=== PATIENT | male | born 1955 | race African-American/Black ===

== ENCOUNTER 2019-10-25 15:20 | Emergency (ER) | payer BC ==
[~2019-10-25 15:20] MED LIST: Iopamidol-370 76% 500 ML 1 ML ONE
[2019-10-25 16:20] LABS: #Lymphocytes 1.1 thou/uL (1.20-3.40); #Monocytes 0.9 thou/uL (0.11-0.59); #Neutrophils 10.5 thou/uL (1.40-6.50); %Basophils 0.2 % (0.0-1.0); %Eosinophils 0.2 % (0.0-10.0); %Monocytes 6.8 % (0.0-10.0); %Neutrophils 83.8 % (42.0-75.0); Hemoglobin 11.4 g/dL (14.0-18.0); Mean Corpuscular HGB CONC 31.6 g/dL (32.0-36.0); Mean Corpuscular Hemoglobin 23.3 pg (27.0-31.0); Mean Corpuscular Volume 73.9 fL (78.0-98.0); Mean Platelet Volume 8.4 fL (7.4-10.4); Platelet Count 251 thou/uL (130-400); RBC Distribution Width 12.6 % (11.5-14.5); Red Blood Cell (RBC) Count 4.89 mill/uL (4.70-6.10); White Blood Cell (WBC) Count 12.5 thou/uL (4.8-10.8)
[2019-10-25 16:38] LABS: ALT (SGPT) 12 U/L (8-55); AST (SGOT) 12 U/L (5-34); Albumin 3.9 g/dL (3.4-4.8); Alkaline Phosphatase 69 U/L (40-110); Anion Gap 14 mmol/L (10-20); BUN (Urea Nitrogen) 18 mg/dL (8.4-25.7); Bilirubin, Total 0.8 mg/dL (0.2-1.2); Calc. Creatinine Clearance 0 mL/min (70-130); Calcium 8.7 mg/dL (7.8-10.44); Carbon Dioxide 24 mmol/L (23-31); Chloride 102 mmol/L (98-107); Estimated GFR-MDRD 81; Globulin 3.2 g/dL (2.4-3.5); Glucose 242 mg/dL (80-115); Potassium 3.9 mmol/L (3.5-5.1); Protein, Total 7.1 g/dL (5.8-8.1); Sodium 136 mmol/L (136-145)
--- NOTE | 2019-10-25 16:45 | CT ---
CT OF NECK PERFORMED WITH INTRAVENOUS CONTRAST ENHANCEMENT: 10/25/19 HISTORY: Throat started hurting Sunday, not improving. Unable to take medications due to pain with swallowi ng. 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 There was an infarct demonstrated on a previous 2014 MRI. There is a low attenuation density associated with an enlarged right tonsillar pillar. This would sug gest early abscess or prominent crypt formation in this region. There appears to be swelling to the uvula associated with this. There are small jugular chain lymph nodes noted which appear significant ly enlarged. Parapharyngeal spaces are clear. Small submandibular nodes are noted. Parotid and subman dibular glands appear unremarkable. Thyroid gland is mildly prominent. No definitive nodules. Lung apices are clear. IMPRESSION: Right sided tonsillitis type changes. POS: OFF
== END 2019-10-25 17:41 | disposition home or self-care (01) ==
LOC: ERS 15:20
DX: J03.90 Acute tonsillitis, unspecified (principal); E11.9 Type 2 diabetes mellitus without complications; I10 Essential (primary) hypertension; Z79.899 Other long term (current) drug therapy; Z79.82 Long term (current) use of aspirin; Z79.84 Long term (current) use of oral hypoglycemic drugs
CPT/HCPCS: 36415; 70491; 80053; 85025; Q9967

== ENCOUNTER 2022-07-13 11:22 | Inpatient (IN) | payer BC ==
[2022-07-13] MEDS ORDERED: Cefepime 2 GM VIAL ONE (11:52)
[2022-07-13] MEDS ORDERED: Magnesium 2 GM/50 ML BAG (IN WATER) ONE (11:52)
[2022-07-13] MEDS ORDERED: Ipratropium/Albuterol 3 ML NEB ONE (11:55)
[2022-07-13 12:05] LABS: #Basophils 0.1 thou/uL (0.0-0.2); #Eosinphils 0.2 thou/uL (0.0-0.7); #Monocytes 0.8 thou/uL (0.11-0.59); #Neutrophils 5.3 thou/uL (1.40-6.50); %Basophils 0.6 % (0.0-1.0); %Eosinophils 1.9 % (0.0-10.0); %Lymphocytes 21.4 % (21.0-51.0); %Monocytes 9.7 % (0.0-10.0); %Neutrophils 66.3 % (42.0-75.0); Hemoglobin 12.7 g/dL (14.0-18.0); Mean Corpuscular HGB CONC 28.8 g/dL (32.0-36.0); Mean Corpuscular Hemoglobin 21.3 pg (27.0-31.0); Mean Corpuscular Volume 74.1 fl (78.0-98.0); Mean Platelet Volume 11.3 fL (7.4-10.4); Platelet Count 208 10x3/uL (130-400); RBC Distribution Width 15.1 % (11.5-14.5); Red Blood Cell (RBC) Count 5.95 mill/uL (4.70-6.10)
[2022-07-13] MEDS ORDERED: methylPREDNISolone Sod Succ/PF 125 MG/2 ML VIAL ONE (12:06)
[2022-07-13] MEDS ORDERED: hydrALAZINE 20 MG/ML VIAL ONE (12:14)
[2022-07-13 12:26] LABS: Actual Bicarbonate (HCO3a) 23.6 mEq/L (22-28); Analyzer IN Cardio ER; Base Excess (BEa) -3.2 mEq/L (-2.0 to +3.0); CO2 Tension 49.3 mmHg (35.0-45.0); Calcium, Ionized (arterial) 1.13 mmol/L (1.12-1.30); Carboxyhemoglobin (COHb) 0.4 gm% (0.0-3.0); Hematocrit-ABG 38 % (42.0-52.0); Potassium - ABG Lab 3.33 mmol/L (3.70-5.30); pH, Arterial 7.298 (7.35-7.45)
[2022-07-13 12:29] LABS: ALT (SGPT) 23 U/L (8-55); AST (SGOT) 34 U/L (5-34); Albumin 4.1 g/dL (3.4-4.8); Alkaline Phosphatase 70 U/L (40-110); Anion Gap 18 mmol/L (10-20); BUN (Urea Nitrogen) 16 mg/dL (8.4-25.7); Bilirubin, Total 0.9 mg/dL (0.2-1.2); Calc. Creatinine Clearance 0 mL/min (70-130); Calcium 8.8 mg/dL (7.8-10.44); Carbon Dioxide 20 mmol/L (23-31); Chloride 101 mmol/L (98-107); Chloride 99 mmol/L (98-107); Estimated GFR 56; Globulin 3.4 g/dL (2.4-3.5); Glucose 235 mg/dL (80-115); Magnesium 1.4 mg/dL (1.6-2.6); Potassium 3.4 mmol/L (3.5-5.1); Potassium 3.7 mmol/L (3.5-5.1); Protein, Total 7.5 g/dL (5.8-8.1); Sodium 134 mmol/L (136-145); Sodium 135 mmol/L (136-145)
[2022-07-13 12:30] LABS: ALT (SGPT) 25 U/L (8-55); AST (SGOT) 36 U/L (5-34); Albumin 4.2 g/dL (3.4-4.8); Alkaline Phosphatase 71 U/L (40-110); Bilirubin, Total 0.9 mg/dL (0.2-1.2); Calcium 8.7 mg/dL (7.8-10.44); Estimated GFR 55; Globulin 3.3 g/dL (2.4-3.5); Glucose 245 mg/dL (80-115); Protein, Total 7.5 g/dL (5.8-8.1)
[2022-07-13] MEDS ORDERED: Vancomycin 1.5 GRAM/300 ML BAG 1.5 GM in Premix Bag 1 BAG IVPB SCH (12:30)
[2022-07-13 12:31] LABS: Anisocytosis SLIGHT = 6-15 cells HPF (0-5); Burr Cells SLIGHT = 2-5 cells HPF (0-1); CellaVision Operator ID LAB.MJL; Hypochromia SLIGHT = 6-15 cells HPF (0-5); Microcytosis SLIGHT = 6-15 cells HPF (0-5); Platelet Adequacy Comment Platelets Normal; Polychromasia SLIGHT = 2-3 cells HPF (0-2)
[2022-07-13 12:37] LABS: ALV-art Gradient 236.075 mmHg (0-20); Puncture Site RRA
[2022-07-13 12:45] LABS: Prothrombin Time 13.4 sec (12.0-14.7)
[2022-07-13] MEDS ORDERED: Furosemide 40 MG/4 ML VIAL ONE (12:46)
[2022-07-13] MEDS ORDERED: Nitroglycerin 50 MG/250 ML BOT 250 ML ONE (12:46)
[2022-07-13 13:28] LABS: Bilirubin Negative (Negative); Blood, Urine 3+ (Negative); CAUTI Indications for Culture Fever or rigors; Clarity Clear (Clear); Glucose, Urine (Dipstick) 500 mg/dL (Negative); Ketone, Urine 10 mg/dL (Negative); Leukocyte Negative Leu/uL (Negative); Nitrite 2+ (Negative); Protein, Urine (Dipstick) 300 mg/dL (Neg-Trace); Specific Gravity, Urine 1.019 (1.002-1.036); Squamous Epithelial None Seen HPF (0-3); Urobilinogen Normal mg/dL (Less than 2)
[2022-07-13 13:36] LABS: Bacteria/HPF 1+ HPF (None Seen)
[2022-07-13 13:38] LABS: Urine Culture Reflex No No
[2022-07-13] MEDS ORDERED: Acetaminophen 325 MG TAB PO PRN (13:56)
[2022-07-13] MEDS ORDERED: Dextrose 5% in Water 1,000 ML IV PRN (14:08)
[2022-07-13] MEDS ORDERED: Dextrose 50% Abboject 50 ML SYRINGE SLOW IVP PRN (14:08)
[2022-07-13] MEDS ORDERED: Glucagon 1 MG/ML KIT IM PRN (14:08)
[2022-07-13] MEDS ORDERED: Vancomycin HCl 1 GM in Sodium Chloride 0.9% 250 ML 250 ML IVPB SCH (14:15)
[2022-07-13] MEDS ORDERED: niCARdipine 40MG In NaCl 40 MG/200 ML BAG IVPB SCH (14:15)
[2022-07-13 15:22] LABS: SARS-CoV-2 NAA Rapid Test Not Detected (NotDetected)
[2022-07-13 16:05] VITALS: BMI 23.8
[2022-07-13 16:14] LABS: Lactic Acid 2.7 mmol/L (0.5-2.2)
[2022-07-13] MEDS: Carvedilol 3.125 MG TAB PO SCH (17:35)
[2022-07-13] MEDS: niCARdipine 25 MG in Sodium Chloride 0.9% 250 ML 250 ML IVPB SCH ×2 (17:35→21:35)
[2022-07-13] MEDS: Lisinopril 20 MG TAB PO SCH (20:36)
[2022-07-13] MEDS ORDERED: Atorvastatin Calcium 40 MG TAB PO SCH (21:00)
[2022-07-13] MEDS ORDERED: Famotidine 20 MG TAB PO SCH (21:00)
[2022-07-13 21:45] LABS: SARS-CoV-2 NAA Rapid Test Not Detected (NotDetected)
[2022-07-14] MEDS: Cefepime 1 GM in Sodium Chloride 0.9% 100 ML IVPB SCH ×3 (00:29→23:54)
[2022-07-14] MEDS: HumaLOG 300 UNITS/3 ML VIAL SC PRN ×2 (00:29→18:48)
[2022-07-14 04:00] LABS: #Monocytes 0.9 thou/uL (0.11-0.59); #Neutrophils 8.7 thou/uL (1.40-6.50); %Basophils 0.3 % (0.0-1.0); %Lymphocytes 6.4 % (21.0-51.0); %Monocytes 8.3 % (0.0-10.0); %Neutrophils 84.7 % (42.0-75.0); Mean Corpuscular HGB CONC 30.6 g/dL (32.0-36.0); Mean Corpuscular Volume 71.9 fl (78.0-98.0); Mean Platelet Volume 10.6 fL (7.4-10.4); Platelet Count 210 10x3/uL (130-400); RBC Distribution Width 14.8 % (11.5-14.5); Red Blood Cell (RBC) Count 5.01 mill/uL (4.70-6.10); White Blood Cell (WBC) Count 10.2 10x3/uL (4.8-10.8)
[2022-07-14 04:10] LABS: Hemoglobin A1c 7.3 % (4.0-6.0)
[2022-07-14 04:20] LABS: Cardiac Risk 3.1 (Less than 4.5)
[2022-07-14 04:22] LABS: Anion Gap 17 mmol/L (10-20); BUN (Urea Nitrogen) 28 mg/dL (8.4-25.7); Calc. Creatinine Clearance 48 mL/min (70-130); Calcium 8.4 mg/dL (7.8-10.44); Carbon Dioxide 23 mmol/L (23-31); Chloride 101 mmol/L (98-107); Estimated GFR 45; Glucose 208 mg/dL (80-115); Iron 22 ug/dL (65-175); Iron Binding Capacity, Total 238 mcg/dL (261-462); Potassium 3.6 mmol/L (3.5-5.1); Sodium 137 mmol/L (136-145)
[2022-07-14] MEDS: Carvedilol 3.125 MG TAB PO SCH (09:21)
[2022-07-14] MEDS: Lisinopril 20 MG TAB PO SCH (09:21)
[2022-07-14] MEDS ORDERED: Carvedilol 6.25 MG TAB PO SCH ×3 (09:30→18:00)
[2022-07-14] MEDS: Losartan 25 MG TAB PO SCH (09:39)
[2022-07-14] MEDS: Famotidine 20 MG TAB PO SCH (09:40)
[2022-07-14] MEDS: Vancomycin 1.5 GRAM/300 ML BAG 1.5 GM in Premix Bag 1 BAG IVPB SCH (13:21)
[2022-07-14] MEDS ORDERED: Amlodipine 10 MG TAB PO SCH (14:30)
[2022-07-14] MEDS ORDERED: Labetalol HCl 100 MG/20 ML VIAL SLOW IVP PRN (14:31)
[2022-07-14] MEDS ORDERED: hydrALAZINE 20 MG/ML VIAL SLOW IVP PRN (14:31)
[2022-07-14] MEDS ORDERED: Furosemide 40 MG/4 ML VIAL SLOW IVP SCH (18:45)
[2022-07-14] MEDS: cloNIDine 0.1 MG TAB PO SCH (20:13)
[2022-07-14] MEDS: Atorvastatin Calcium 40 MG TAB PO SCH (20:14)
[2022-07-15] MEDS: Furosemide 40 MG/4 ML VIAL SLOW IVP SCH ×2 (05:13→14:53)
[2022-07-15 06:12] LABS: #Eosinphils 0.1 thou/uL (0.0-0.7); #Monocytes 0.9 thou/uL (0.11-0.59); #Neutrophils 5.8 thou/uL (1.40-6.50); %Basophils 0.4 % (0.0-1.0); %Lymphocytes 18.8 % (21.0-51.0); %Monocytes 10.4 % (0.0-10.0); Hemoglobin 10.4 g/dL (14.0-18.0); Mean Corpuscular HGB CONC 30.2 g/dL (32.0-36.0); Mean Corpuscular Hemoglobin 21.6 pg (27.0-31.0); Mean Platelet Volume 10.7 fL (7.4-10.4); Platelet Count 204 10x3/uL (130-400); RBC Distribution Width 14.7 % (11.5-14.5); Red Blood Cell (RBC) Count 4.81 mill/uL (4.70-6.10); White Blood Cell (WBC) Count 8.3 10x3/uL (4.8-10.8)
[2022-07-15 06:31] LABS: Anion Gap 13 mmol/L (10-20); BUN (Urea Nitrogen) 28 mg/dL (8.4-25.7); Calc. Creatinine Clearance 57 mL/min (70-130); Carbon Dioxide 25 mmol/L (23-31); Chloride 100 mmol/L (98-107); Mean Corpuscular Volume 71.5 fl (78.0-98.0); Potassium 3.3 mmol/L (3.5-5.1); Sodium 135 mmol/L (136-145)
[2022-07-15 06:32] LABS: Calcium 8.2 mg/dL (7.8-10.44); Estimated GFR 55; Glucose 176 mg/dL (80-115)
[2022-07-15] MEDS ORDERED: Potassium Chloride 20 MEQ TAB PO SCH (09:00)
[2022-07-15] MEDS: Potassium Chloride 10 MEQ TAB PO SCH ×2 (09:03→16:59)
[2022-07-15] MEDS: Carvedilol 6.25 MG TAB PO SCH ×2 (09:05→17:00)
[2022-07-15] MEDS: NIFEdipine XL 60 MG TAB PO SCH (09:06)
[2022-07-15] MEDS: cloNIDine 0.1 MG TAB PO SCH ×2 (09:06→20:37)
[2022-07-15] MEDS: Losartan 25 MG TAB PO SCH (09:06)
[2022-07-15] MEDS: Amlodipine 10 MG TAB PO SCH (09:06)
[2022-07-15] MEDS: Famotidine 20 MG TAB PO SCH (09:07)
[2022-07-15 12:42] LABS: Vancomycin, Trough 9.2 ug/mL
[2022-07-15] MEDS: Cefepime 1 GM in Sodium Chloride 0.9% 100 ML IVPB SCH (12:51)
[2022-07-15] MEDS: Vancomycin 1.5 GRAM/300 ML BAG 1.5 GM in Premix Bag 1 BAG IVPB SCH (13:51)
[2022-07-15] MEDS: HumaLOG 300 UNITS/3 ML VIAL SC PRN ×2 (14:53→20:49)
[2022-07-15] MEDS ORDERED: Azithromycin 500 MG in Sodium Chloride 0.9% 250 ML 250 ML IVPB SCH (15:30)
[2022-07-15] MEDS ORDERED: cefTRIAXone\\ROCEPHIN 1 GM in Sodium Chloride 0.9% 100 ML IVPB SCH (15:30)
[2022-07-15] MEDS: Ferrous Sulfate 325 MG TAB PO SCH (16:57)
[2022-07-15] MEDS: Azithromycin 500 MG in Sodium Chloride 0.9% 250 ML 250 ML IVPB SCH (16:58)
[2022-07-15] MEDS: Atorvastatin Calcium 40 MG TAB PO SCH (20:37)
[2022-07-16 05:35] LABS: Hemoglobin 10.6 g/dL (14.0-18.0); Mean Corpuscular HGB CONC 30.4 g/dL (32.0-36.0); Mean Corpuscular Hemoglobin 21.8 pg (27.0-31.0); Mean Corpuscular Volume 71.8 fl (78.0-98.0); Mean Platelet Volume 10.3 fL (7.4-10.4); Platelet Count 214 10x3/uL (130-400); RBC Distribution Width 14.5 % (11.5-14.5); Red Blood Cell (RBC) Count 4.86 mill/uL (4.70-6.10)
[2022-07-16 05:37] LABS: Delete Auto Diff?? YES; Manual Diff?? YES
[2022-07-16] MEDS: Furosemide 40 MG/4 ML VIAL SLOW IVP SCH ×2 (06:00→14:36)
[2022-07-16] MEDS: HumaLOG 300 UNITS/3 ML VIAL SC PRN ×2 (06:04→14:36)
[2022-07-16 06:09] LABS: Band 7 % (5-11); CellaVision Operator ID LAB.CLH1; Eosinophils 6 % (0-10); Hypochromia SLIGHT = 6-15 cells HPF (0-5); Lymphocytes 31 % (21-51); Microcytosis SLIGHT = 6-15 cells HPF (0-5); Monocytes 6 % (0-10); Neutrophil 49 % (42-75); Platelet Adequacy Comment Platelets Normal; Polychromasia SLIGHT = 2-3 cells HPF (0-2); Reactive Lymphocytes 2 % (0-10); Total Cell Count 101
[2022-07-16 06:37] LABS: Anion Gap 12 mmol/L (10-20); BUN (Urea Nitrogen) 36 mg/dL (8.4-25.7); Calc. Creatinine Clearance 53 mL/min (70-130); Calcium 8.3 mg/dL (7.8-10.44); Carbon Dioxide 26 mmol/L (23-31); Chloride 99 mmol/L (98-107); Estimated GFR 50; Glucose 179 mg/dL (80-115); Potassium 3.5 mmol/L (3.5-5.1); Sodium 133 mmol/L (136-145)
[2022-07-16] MEDS ORDERED: Potassium Chloride 20 MEQ TAB PO SCH (08:45)
[2022-07-16] MEDS: Famotidine 20 MG TAB PO SCH (08:54)
[2022-07-16] MEDS: NIFEdipine XL 60 MG TAB PO SCH (08:54)
[2022-07-16] MEDS: Losartan 25 MG TAB PO SCH (08:54)
[2022-07-16] MEDS: Potassium Chloride 10 MEQ TAB PO SCH ×2 (08:54→16:52)
[2022-07-16] MEDS: Carvedilol 6.25 MG TAB PO SCH ×2 (08:55→16:50)
[2022-07-16] MEDS: Amlodipine 10 MG TAB PO SCH (08:55)
[2022-07-16] MEDS: cloNIDine 0.1 MG TAB PO SCH ×2 (08:56→21:26)
[2022-07-16 09:03] LABS: Magnesium 1.8 mg/dL (1.6-2.6)
[2022-07-16] MEDS ORDERED: Magnesium Oxide 400 MG TAB PO SCH (15:04)
[2022-07-16] MEDS: cefTRIAXone\\ROCEPHIN 1 GM in Sodium Chloride 0.9% 100 ML IVPB SCH (16:50)
[2022-07-16] MEDS: Atorvastatin Calcium 40 MG TAB PO SCH (21:26)
[2022-07-17 05:34] LABS: #Eosinphils 0.2 thou/uL (0.0-0.7); #Monocytes 0.5 thou/uL (0.11-0.59); #Neutrophils 2.5 thou/uL (1.40-6.50); %Basophils 0.4 % (0.0-1.0); %Eosinophils 4.8 % (0.0-10.0); %Lymphocytes 33.5 % (21.0-51.0); %Monocytes 10.1 % (0.0-10.0); %Neutrophils 50.8 % (42.0-75.0); Hemoglobin 11.4 g/dL (14.0-18.0); Mean Corpuscular HGB CONC 30.7 g/dL (32.0-36.0); Mean Platelet Volume 10.1 fL (7.4-10.4); Platelet Count 234 10x3/uL (130-400); RBC Distribution Width 14.2 % (11.5-14.5); Red Blood Cell (RBC) Count 5.19 mill/uL (4.70-6.10)
[2022-07-17] MEDS: HumaLOG 300 UNITS/3 ML VIAL SC PRN (05:44)
[2022-07-17 05:47] LABS: Mean Corpuscular Volume 71.5 fl (78.0-98.0)
[2022-07-17 05:57] LABS: Anion Gap 14 mmol/L (10-20); BUN (Urea Nitrogen) 35 mg/dL (8.4-25.7); Calc. Creatinine Clearance 49 mL/min (70-130); Calcium 8.5 mg/dL (7.8-10.44); Carbon Dioxide 26 mmol/L (23-31); Chloride 98 mmol/L (98-107); Estimated GFR 50; Glucose 250 mg/dL (80-115); Potassium 3.7 mmol/L (3.5-5.1); Sodium 134 mmol/L (136-145)
[2022-07-17] MEDS ORDERED: Furosemide 40 MG TAB PO SCH (07:30)
[2022-07-17] MEDS: NIFEdipine XL 60 MG TAB PO SCH (08:25)
[2022-07-17] MEDS: Famotidine 20 MG TAB PO SCH (08:25)
[2022-07-17] MEDS: Losartan 25 MG TAB PO SCH (08:26)
[2022-07-17] MEDS: Carvedilol 6.25 MG TAB PO SCH ×2 (08:27→17:56)
[2022-07-17] MEDS: Potassium Chloride 10 MEQ TAB PO SCH ×2 (08:27→17:56)
[2022-07-17] MEDS: Amlodipine 10 MG TAB PO SCH (08:27)
[2022-07-17] MEDS: cloNIDine 0.1 MG TAB PO SCH (08:28)
[2022-07-17] MEDS ORDERED: Magnesium Oxide 400 MG TAB PO SCH (09:00)
[2022-07-17] MEDS: Ferrous Sulfate 325 MG TAB PO SCH (15:47)
[2022-07-17 16:11] VITALS: TEMP 98
[2022-07-17] MEDS: cefTRIAXone\\ROCEPHIN 1 GM in Sodium Chloride 0.9% 100 ML IVPB SCH (16:50)
[2022-07-17] MEDS: Azithromycin 500 MG in Sodium Chloride 0.9% 250 ML 250 ML IVPB SCH (17:55)
[2022-07-17 17:56] VITALS: BP 136/85
[2022-07-27 12:51] LABS: O2 Tension (PaO2), arterial 58.8 mmHg (> 80.0)
== END 2022-07-17 20:21 | disposition home or self-care (01) | DRG 871 ==
LOC: ERS 11:22 → CCU 15:01 → NEURO 07-14 16:45
PROVIDERS: ADMIT Internal Medicine; ATTEND Internal Medicine
PROC: 5A09357 Assistance with Respiratory Ventilation, Less than 24 Consecutive Hours, Continuous Positive Airway Pressure (ICD-10-PCS; principal; 2022-07-13)
PROC: 3E03329 Introduction of Other Anti-infective into Peripheral Vein, Percutaneous Approach (ICD-10-PCS; 2022-07-13)
DX: A41.89 Other specified sepsis (principal); I50.33 Acute on chronic diastolic (congestive) heart failure; J15.6 Pneumonia due to other Gram-negative bacteria; J96.01 Acute respiratory failure with hypoxia; J15.8 Pneumonia due to other specified bacteria; I13.0 Hypertensive heart and chronic kidney disease with heart failure and stage 1 through stage 4 chronic kidney disease, or unspecified chronic kidney disease; N39.0 Urinary tract infection, site not specified; I16.1 Hypertensive emergency; Z20.822 Contact with and (suspected) exposure to COVID-19; D50.9 Iron deficiency anemia, unspecified; N18.2 Chronic kidney disease, stage 2 (mild); E11.22 Type 2 diabetes mellitus with diabetic chronic kidney disease; E87.6 Hypokalemia; N40.0 Benign prostatic hyperplasia without lower urinary tract symptoms; E78.00 Pure hypercholesterolemia, unspecified; Z79.84 Long term (current) use of oral hypoglycemic drugs; Z79.02 Long term (current) use of antithrombotics/antiplatelets; Z82.49 Family history of ischemic heart disease and other diseases of the circulatory system; Z80.42 Family history of malignant neoplasm of prostate; Z79.899 Other long term (current) drug therapy
CPT/HCPCS: 36415; 36416; 36600; 71045; 80048; 80053; 80061; 80202; 81001; 82553; 82805; 83036; 83540; 83550; 83605; 83735; 83880; 84439; 84443; 84481; 84484; 85025; 85610; 85730; 86850; 86900; 86901; 87040; 87077; 87081; 87086; 93005; 93306; 94640; 94660; 94760; 94799; 96365; 96366; 96367; 96375; J0360; J0456; J0692; J0696; J1650; J1815; J1940; J2930; J3370; J3475; J3490; J7050; J7620